=== PATIENT | female | born 1980 | race Hispanic/Latino ===

== ENCOUNTER 2018-02-02 16:25 | Emergency (ER) | payer OTHER ==
[2018-02-02] MEDS ORDERED: FAMOTIDINE/PF 20 MG/2 ML VIAL IV ONE (16:32)
[2018-02-02] MEDS ORDERED: METHYLPREDNISOLONE SOD SUCC 125MG/2ML VIAL ONE (16:32)
[2018-02-02 16:50] LABS: BASOPHILS % (AUTO) 0.6 % (0.0-5.0); EOSINOPHILS % (AUTO) 0.4 % (0.0-8.0); HEMATOCRIT 41.4 % (36-48); LYMPHOCYTES % (AUTO) 24.9 % (21.0-51.0); MEAN CORPUSCULAR HEMOGLOBIN 30.5 pg (27.0-33.0); MEAN CORPUSCULAR HGB CONC 34.8 g/dL (32.0-36.0); MEAN CORPUSCULAR VOLUME 87.8 fL (79-99); NEUTROPHILS % (AUTO) 66.1 % (40.0-77.0); NUCLEATED RED BLOOD CELLS 0.4 % (0.0-0.19); PLATELET COUNT (AUTO) 54 K/uL (130-400); RED BLOOD CELL COUNT(AUTO) 4.72 MIL/uL (4.00-5.50); RED CELL DISTRIBUTION WIDTH 14.3 % (11.0-15.5); WHITE BLOOD COUNT (AUTO) 15.7 K/uL (4.8-10.8)
[2018-02-02 17:14] LABS: PLATELET MORPHOLOGY COMMENT DECREASED
[2018-02-02 17:59] LABS: CREATININE 0.8 mg/dL (0.5-1.5); POTASSIUM 3.3 mmol/L (3.5-5.1)
== END 2018-02-02 19:44 | disposition home or self-care (01) ==
LOC: EDH 16:25
DX: T63.441A Toxic effect of venom of bees, accidental (unintentional), initial encounter (principal); T78.40XA Allergy, unspecified, initial encounter; Y92.098 Other place in other non-institutional residence as the place of occurrence of the external cause
CPT/HCPCS: 36415; 80048; 84702; 85025; 96374; 96375; 99284; J2930; J3490

== ENCOUNTER 2018-02-11 15:48 | Emergency (ER) | payer OTHER ==
[2018-02-11] MEDS ORDERED: LIDOCAINE HCL-MPF 1% 2ML VIAL ONE (16:21)
[2018-02-11] MEDS ORDERED: CEFTRIAXONE SODIUM 1 GM ONE (16:21)
[2018-02-11] MEDS ORDERED: ACETAMINOPHEN EXTRA STRENGTH 500 MG TABLET ONE (16:21)
== END 2018-02-11 16:55 | disposition home or self-care (01) ==
LOC: EDH 15:48
DX: S50.872A Other superficial bite of left forearm, initial encounter (principal); Z98.890 Other specified postprocedural states; W54.0XXA Bitten by dog, initial encounter; Y93.89 Activity, other specified; Y92.098 Other place in other non-institutional residence as the place of occurrence of the external cause; Y99.8 Other external cause status
CPT/HCPCS: 73110; 96372; 99284; J0696; J3490

== ENCOUNTER 2018-09-19 06:39 | Emergency (ER) | payer OTHER ==
[2018-09-19] MEDS ORDERED: ERYTHROMYCIN BASE 0.5% OPHTH OINT 1 GM TUBE ONE (06:57)
== END 2018-09-19 08:57 | disposition home or self-care (01) ==
LOC: EDH 06:39
DX: H00.015 Hordeolum externum left lower eyelid (principal); R00.0 Tachycardia, unspecified; Z98.890 Other specified postprocedural states

== ENCOUNTER 2018-09-26 19:39 | Emergency (ER) | payer OTHER ==
[2018-09-26] MEDS ORDERED: ACETAMINOPHEN 325 MG TAB ONE (19:52)
[2018-09-26] MEDS ORDERED: SODIUM CHLORIDE 0.9% 1000ML 1,000 ML IV ONE ×2 (19:54→21:07)
[2018-09-26 20:13] LABS: BASOPHILS % (AUTO) 1.1 % (0.0-5.0); EOSINOPHILS % (AUTO) 0.9 % (0.0-8.0); HEMATOCRIT 39.9 % (36-48); LYMPHOCYTES % (AUTO) 18.7 % (21.0-51.0); MEAN CORPUSCULAR HEMOGLOBIN 29.8 pg (27.0-33.0); MEAN CORPUSCULAR HGB CONC 34.1 g/dL (32.0-36.0); MEAN CORPUSCULAR VOLUME 87.4 fL (79-99); MONOCYTES % (AUTO) 6.2 % (3.0-13.0); NEUTROPHILS % (AUTO) 73.1 % (40.0-77.0); NUCLEATED RED BLOOD CELLS 0.1 % (0.0-0.19); PLATELET COUNT (AUTO) 233 K/uL (130-400); RED BLOOD CELL COUNT(AUTO) 4.57 MIL/uL (4.00-5.50); RED CELL DISTRIBUTION WIDTH 14.3 % (11.0-15.5); WHITE BLOOD COUNT (AUTO) 8.9 K/uL (4.8-10.8)
[2018-09-26 20:25] LABS: CREATININE 0.7 mg/dL (0.5-1.5); POTASSIUM 3.9 mmol/L (3.5-5.1)
[2018-09-26 20:26] LABS: INR 0.9 (0.85-1.15); PARTIAL THROMBOPLASTIN TIME 26.1 SEC (26.3-35.5); PROTHROMBIN TIME 9.5 SEC (9.6-11.6)
[2018-09-26 20:30] LABS: ALBUMIN 3.4 g/dL (3.5-5.0); BILIRUBIN,TOTAL 0.4 mg/dL (0.2-1.0); TOTAL PROTEIN, SERUM 6.9 g/dL (6.0-8.3)
[2018-09-26 20:44] LABS: APPEARANCE,URINE SL CLOUDY (CLEAR); BILIRUBIN,URINE NEGATIVE (NEGATIVE); COLOR,URINE YELLOW (YELLOW); GLUCOSE, URINE (UA) >=1000 mg/dL (NEGATIVE); KETONES,URINE 15 mg/dL (NEGATIVE); LEUKOCYTE ESTERASE ,URINE SMALL (NEGATIVE); NITRATE,URINE NEGATIVE (NEGATIVE); OCCULT BLOOD,URINE TRACE-INTACT (NEGATIVE); PROTEIN,URINE NEGATIVE (NEGATIVE); UROBILINOGEN,URINE 0.2 mg/dL (0.2-1.0)
[2018-09-26 20:47] LABS: HCG,QUAL RESULT NEGATIVE (NEGATIVE)
[2018-09-26 20:52] LABS: BACTERIA,URINE Few /HPF (None Seen)
[2018-09-26 20:53] LABS: SQUAMOUS EPITHELIAL CELL,UR Few /HPF (0-2)
[2018-09-26] MEDS ORDERED: CEFTRIAXONE SODIUM 1 GM ONE (21:07)
== END 2018-09-26 22:31 | disposition home or self-care (01) ==
LOC: EDH 19:39
DX: N39.0 Urinary tract infection, site not specified (principal); R07.89 Other chest pain; Z98.890 Other specified postprocedural states; Z98.51 Tubal ligation status; Z91.030 Bee allergy status
CPT/HCPCS: 36415; 80053; 81001; 81025; 84484; 85025; 85378; 85610; 85730; 93005; 96374; 99285; J0696; J7030 ×2

== ENCOUNTER → 2018-10-13 | Outpatient (CLI) | payer OTHER ==
[2018-10-13 09:11] LABS: HEMOGLOBIN A1C 9.5 % (4.0-6.0)
[2018-10-13 09:20] LABS: T4 (THYROXINE) 10.5 ug/dL (4.7-13.3); THYROID STIMULATING HORMONE 0.98 uIU/mL (0.36-3.74)
== END | disposition home or self-care (01) ==
LOC: LAB 08:21
PROVIDERS: ATTEND Internal Medicine Gastroenterology
DX: R12 Heartburn (principal)
CPT/HCPCS: 36415; 83036; 84436; 84443